=== PATIENT | female | born 1945 | race Caucasian/White ===

== ENCOUNTER 2017-03-19 13:22 | Inpatient (IN) ==
[2017-03-19 14:07] LABS: MANUAL DIFF NEEDED? NO
[2017-03-19 14:15] LABS: BASO% 0.4 % (0.0-0.8); EOS# 0.07 X1000 (0.0-0.7); EOS% 0.7 % (0.0-10.0); HEMATOCRIT 42.8 % (37.0-47.0); HEMOGLOBIN 14.1 g/dL (12.0-16.0); IMM GRAN# 0.02 X1000 (0.0-0.04); IMM GRAN% 0.2 % (0.0-0.5); LYMPH# 0.99 X1000 (1.2-3.4); LYMPH% 10.1 % (20.5-51.1); MCH 30.7 PG (27-31); MCHC 32.9 g/dL (33-37); MONO# 0.72 X1000 (0.11-0.59); MONO% 7.4 % (1.7-9.3); MPV 9.7 FL (7.4-10.4); NEUT% 81.2 % (42.2-75.2); PLT 259 X1000 (130-400)
[2017-03-19 14:23] LABS: INR 1.03; PROTIME 10.8 Seconds (9.2-11.7); PTT 27.6 Seconds (22.0-36.0)
[2017-03-19] MEDS ORDERED: DUONEB (A & A) INH ONE (14:36)
[2017-03-19 14:38] LABS: AGAP 12; ALBUMIN 3.6 g/dL (3.5-5.0); ALKALINE PHOSPHATASE 93 U/L (32-104); BUN 10 mg/dL (8-22); CALCIUM 9.9 mg/dL (8.8-10.2); CHLORIDE 91 mmol/L (98-107); CK PROFILE 35 U/L (24-173); COSMO 267; GOT 19 U/L (10-30); GPT 15 U/L (10-36); MAGNESIUM 1.4 mg/dL (1.5-2.7); POTASSIUM 3.5 mmol/L (3.5-5.1); SODIUM 132 mmol/L (136-145); TCO2 29 mmol/L (25-35); TOTAL BILIRUBIN 0.62 mg/dL (0.20-1.00); TOTAL PROTEIN 7.8 g/dL (6.3-8.3)
[2017-03-19 14:59] LABS: ALLEN TEST YES; BE 7.8 mmoll (-3.0-3.0); BLOOD TYPE ARTERIAL; DRAW SITE R RADIAL; METHB 0.7 % (0.0-1.5); O2(CT) 17.5 mL/dL (15.0-23.0); PCO2(98.6) 49 mmHg (35-45); PO2(98.6) 71 mmHg (60-100); SAMPLE BLOOD; SAO2 95.8 % (95.0-100.0); THB 13.3 g/dL (11.5-17.4); pH(98.6) 7.44 (7.35-7.45)
[2017-03-19 15:00] LABS: MODALITY CANNULA
[2017-03-19 15:03] LABS: URINE CULTURE NEEDED? NO; URINE MICRO REVIEW NEEDED? NO; URINE SOURCE CLEAN CATCH
[2017-03-19 15:09] LABS: BILIRUBIN URINE NEGATIVE (NEGATIVE); BLOOD URINE NEGATIVE (NEGATIVE); COLOR STRAW; GLUCOSE URINE NEGATIVE (NEGATIVE); LEUKOCYTES URINE NEGATIVE (NEGATIVE); NITRITE URINE NEGATIVE (NEGATIVE); PH URINE 6.5; PROTEIN URINE NEGATIVE (NEGATIVE); SP GRAVITY URINE 1.001; TURBIDITY URINE CLEAR (CLEAR); UR EPITHELIAL CELLS <10 /HPF (<10); URINE BACTERIA NEGATIVE /HPF; URINE RBC <10 /HPF (<10); URINE WBC <10 /HPF (<10); UROBILINOGEN URINE NORMAL (NORMAL)
[2017-03-19] MEDS ORDERED: LASIX IV ONE (20:14)
[2017-03-19] MEDS ORDERED: MAGNESIUM SULFATE 2 GM/S.W.I. 2 GM/50 ML IVPB IV ONE (20:38)
[2017-03-19] MEDS ORDERED: KLOR-CON PO ONE (20:38)
[2017-03-19] MEDS ORDERED: MYLICON PO ONE (20:38)
[2017-03-19] MEDS ORDERED: TYLENOL PO PRN (21:45)
[2017-03-19] MEDS ORDERED: ZOFRAN IV PRN (21:45)
[2017-03-19] MEDS: NORCO-10 PO PRN (22:24)
[2017-03-19] MEDS: DESYREL PO SCH (22:25)
[2017-03-19] MEDS: DUONEB (A & A) INH SCH (22:55)
[2017-03-19] MEDS ORDERED: ELAVIL PO SCH (23:00)
[2017-03-19] MEDS ORDERED: TRILAFON PO SCH ×2 (23:00→23:54)
[2017-03-20] MEDS: TRILAFON PO SCH ×3 (01:47→22:23)
[2017-03-20] MEDS: ELAVIL PO SCH ×3 (01:47→22:23)
[2017-03-20] MEDS: DUONEB (A & A) INH SCH ×5 (03:33→19:40)
[2017-03-20 04:57] LABS: ALLEN TEST YES; BE 12.9 mmoll (-3.0-3.0); BLOOD TYPE ARTERIAL; DRAW SITE R RADIAL; METHB 0.4 % (0.0-1.5); O2(CT) 6.2 mL/dL (15.0-23.0); PO2(98.6) 64 mmHg (60-100); SAMPLE BLOOD; SAO2 97.4 % (95.0-100.0); THB 4.5 g/dL (11.5-17.4); pH(98.6) 7.46 (7.35-7.45)
[2017-03-20 04:59] LABS: MODALITY CANNULA; PCO2(98.6) 53 mmHg (35-45)
[2017-03-20] MEDS: PRILOSEC PO SCH ×2 (05:40→08:46)
[2017-03-20 06:11] LABS: MANUAL DIFF NEEDED? NO
[2017-03-20 06:28] LABS: BASO% 0.4 % (0.0-0.8); EOS# 0.13 X1000 (0.0-0.7); EOS% 1.6 % (0.0-10.0); HEMATOCRIT 42.4 % (37.0-47.0); HEMOGLOBIN 13.9 g/dL (12.0-16.0); LYMPH# 1.76 X1000 (1.2-3.4); LYMPH% 22.2 % (20.5-51.1); MCH 30.8 PG (27-31); MCHC 32.8 g/dL (33-37); MCV 93.8 FL (81-99); MONO# 0.92 X1000 (0.11-0.59); MONO% 11.6 % (1.7-9.3); MPV 9.5 FL (7.4-10.4); NEUT% 64.2 % (42.2-75.2); PLT 260 X1000 (130-400); RBC 4.52 XMIL (4.2-5.4)
[2017-03-20 06:47] LABS: AGAP 14; BUN 12 mg/dL (8-22); CALCIUM 9.3 mg/dL (8.8-10.2); CHLORIDE 95 mmol/L (98-107); COSMO 283; POTASSIUM 3.3 mmol/L (3.5-5.1); SODIUM 142 mmol/L (136-145); TCO2 33 mmol/L (25-35)
[2017-03-20] MEDS ORDERED: KLOR-CON PO ONE (08:05)
[2017-03-20] MEDS: PRINZIDE 10/12.5MG PO SCH (08:44)
[2017-03-20] MEDS: LASIX PO SCH (08:45)
[2017-03-20] MEDS: NORCO-10 PO PRN ×2 (08:45→18:31)
[2017-03-20] MEDS: ZYLOPRIM PO SCH (08:45)
[2017-03-20] MEDS: TOPROL XL PO SCH (08:45)
[2017-03-20] MEDS ORDERED: PREDNISONE PO SCH (09:00)
[2017-03-20] MEDS: ADVAIR 250/50 DISKUS INH SCH ×2 (09:51→19:39)
[2017-03-20] MEDS: SPIRIVA INH SCH (09:52)
[2017-03-20] MEDS: BROVANA NEB INH SCH ×2 (09:52→19:40)
[2017-03-20] MEDS: DESYREL PO SCH (22:23)
[2017-03-21] MEDS: DUONEB (A & A) INH SCH ×4 (02:54→19:45)
[2017-03-21] MEDS: PRILOSEC PO SCH (06:24)
[2017-03-21 07:01] LABS: MANUAL DIFF NEEDED? NO
[2017-03-21 07:09] LABS: BASO% 0.4 % (0.0-0.8); EOS# 0.16 X1000 (0.0-0.7); EOS% 2.3 % (0.0-10.0); HEMATOCRIT 39.9 % (37.0-47.0); HEMOGLOBIN 12.7 g/dL (12.0-16.0); IMM GRAN# 0.02 X1000 (0.0-0.04); IMM GRAN% 0.3 % (0.0-0.5); LYMPH# 1.54 X1000 (1.2-3.4); MCH 30.2 PG (27-31); MCHC 31.8 g/dL (33-37); MCV 94.8 FL (81-99); MONO# 0.85 X1000 (0.11-0.59); MONO% 12.1 % (1.7-9.3); MPV 9.6 FL (7.4-10.4); NEUT% 62.9 % (42.2-75.2); PLT 253 X1000 (130-400); RBC 4.21 XMIL (4.2-5.4)
[2017-03-21 07:38] LABS: AGAP 12; ALBUMIN 3.4 g/dL (3.5-5.0); ALKALINE PHOSPHATASE 65 U/L (32-104); BUN 16 mg/dL (8-22); CALCIUM 8.8 mg/dL (8.8-10.2); CHLORIDE 98 mmol/L (98-107); COSMO 285; GOT 17 U/L (10-30); GPT 14 U/L (10-36); POTASSIUM 3.8 mmol/L (3.5-5.1); SODIUM 142 mmol/L (136-145); TCO2 32 mmol/L (25-35); TOTAL BILIRUBIN 0.29 mg/dL (0.20-1.00); TOTAL PROTEIN 6.3 g/dL (6.3-8.3)
[2017-03-21] MEDS ORDERED: PREDNISONE PO SCH (07:48)
[2017-03-21] MEDS: SPIRIVA INH SCH (08:04)
[2017-03-21] MEDS: ADVAIR 250/50 DISKUS INH SCH ×2 (08:04→19:44)
[2017-03-21] MEDS: BROVANA NEB INH SCH ×2 (08:05→19:44)
[2017-03-21] MEDS: NORVASC PO SCH ×2 (08:35→20:25)
[2017-03-21] MEDS: LASIX PO SCH (08:35)
[2017-03-21] MEDS: ELAVIL PO SCH ×2 (08:36→20:25)
[2017-03-21] MEDS: NORCO-10 PO PRN ×3 (08:36→23:58)
[2017-03-21] MEDS: TOPROL XL PO SCH (08:37)
[2017-03-21] MEDS: TRILAFON PO SCH ×2 (08:37→20:25)
[2017-03-21] MEDS: ZYLOPRIM PO SCH (08:38)
[2017-03-21] MEDS ORDERED: NORVASC PO SCH (09:00)
[2017-03-21] MEDS: PRINZIDE 10/12.5MG PO SCH (09:55)
[2017-03-21] MEDS: DESYREL PO SCH (20:25)
[2017-03-22] MEDS: DUONEB (A & A) INH SCH ×2 (02:34→11:00)
[2017-03-22] MEDS: PRILOSEC PO SCH (06:17)
[2017-03-22 07:55] VITALS: BP 154/70
[2017-03-22] MEDS ORDERED: MEDROL DOSEPAK PO SCH (10:30)
[2017-03-22] MEDS: ADVAIR 250/50 DISKUS INH SCH (11:12)
[2017-03-22] MEDS: SPIRIVA INH SCH (11:14)
[2017-03-22] MEDS: BROVANA NEB INH SCH (11:14)
[2017-03-22] MEDS: TRILAFON PO SCH (11:16)
[2017-03-22] MEDS: ELAVIL PO SCH (11:17)
[2017-03-22] MEDS: NORVASC PO SCH (11:17)
[2017-03-22] MEDS: TOPROL XL PO SCH (11:17)
[2017-03-22] MEDS: PRINZIDE 10/12.5MG PO SCH (11:18)
[2017-03-22] MEDS: LASIX PO SCH (11:18)
[2017-03-22] MEDS: ZYLOPRIM PO SCH (11:19)
[2017-03-22] MEDS: NORCO-10 PO PRN (11:23)
[2017-03-22] MEDS ORDERED: MEDROL PO SCH (12:00)
== END 2017-03-22 13:56 | disposition home health service (06) ==
LOC: ED 13:22 → SUATTDRO 21:16 → 4N 21:16
PROVIDERS: ATTEND Internal Medicine

== ENCOUNTER 2018-07-29 15:01 | Inpatient (IN) ==
[2018-07-29] MEDS ORDERED: DUONEB (A & A) INH ONE ×3 (15:19→15:20)
--- NOTE | 2018-07-29 15:26 | PROVIDER DOCUMENTATION ---
HPI-Respiratory General - General Stated Complaint: RESPIRATORY DISTRESS Time Seen by Provider: 07/29/18 15:12 Source: patient Allergies/Adverse Reactions: Patient Allergies Allergy/AdvReac Type Severity Reaction Status Date / Time No Known Allergies Allergy Verified 06/13/18 00:03 Home Medications: Home Medication List Medication Instructions Recorded Confirmed Last Taken Type Allopurinol 300 mg PO DAILY 03/19/17 06/13/18 12/11/17 History Citalopram [Celexa] 40 mg PO DAILY 03/19/17 06/13/18 12/11/17 History Omeprazole 40 mg PO DAILY 03/19/17 06/13/18 12/11/17 History Amlodipine [Norvasc] 5 mg PO BID #120 tablet 03/22/17 06/13/18 12/11/17 Rx 0900 Benzonatate 100 mg PO Q8H PRN PRN 06/16/17 06/13/18 12/11/17 History Buspirone [Buspar] 10 mg PO Q8H 06/16/17 06/13/18 12/11/17 History Albuterol [Albuterol Neb] 2.5 mg INH RTQ6H 08/06/17 06/13/18 12/11/17 History Tiotropium [place] Inhaler 18 mcg IH RTDAILY #1 inhaler 08/08/17 06/13/18 Rx [Spiriva] Albuterol Sulfate [Proair Hfa] 8.5 gm INH Q4H PRN PRN 11/11/17 06/13/18 History Cholecalciferol (Vitamin D3) 5,000 unit PO DAILY 11/11/17 06/13/18 12/11/17 History [Vitamin D3] Prednisone 10 mg PO DAILY 11/11/17 06/13/18 11/30/17 07:00 History Promethazine [Phenergan] 25 mg PO Q8H PRN PRN 11/11/17 06/13/18 12/11/17 History 0900 Vitamin A 8,000 unit PO DAILY 11/11/17 06/13/18 11/30/17 07:00 History Blood Sugar Diagnostic [Contour 1 ea [facility] 4XDAY #30 strip 11/20/17 06/13/18 Rx Test Strip] Blood-Glucose Control, Low 1 ea MC ONCE #1 ea 11/20/17 06/13/18 12/11/17 Rx [Contour Next Control Solution] Blood-Glucose Meter [Contour Next] 1 [facility] 4XDAY #1 ea 11/20/17 06/13/18 18:00 Rx Fluticasone/Vilant 200/25 INH 1 puff INH RTDAILY #1 inhaler 11/20/17 06/13/18 07:00 Rx [Breo Ellipta 200/25 Mcg INH] Lactobacillus Rhamnosus GG 1 ea PO BID #60 cap 11/20/17 06/13/18 11/30/17 07:00 Rx [Culturelle] Lancets [Blood Lancets] 1 [facility] 4XDAY #30 ea 11/20/17 06/13/18 11/30/17 18:00 Rx Metformin [Glucophage] 500 mg PO BID CC #60 tab 11/20/17 06/13/18 12/11/17 Rx Roflumilast [Daliresp] 500 microgm PO DAILY #120 tab 12/04/17 06/13/18 12/11/17 Rx Clonidine [Catapres] 0.1 mg PO DAILY #90 tab 12/23/17 06/13/18 Unknown Rx Amoxicillin/Pot Clavulanate 875 mg PO Q12HR #14 tab 06/19/18 Unknown Rx [Augmentin] Doxycycline 100 mg PO BID #14 tab 06/19/18 Unknown Rx Fluticasone/Salmet 500/50 INH 1 puff INH RTBID inhaler 06/19/18 Unknown Rx [Advair 500/50 Diskus] Furosemide [Lasix] 40 mg PO DAILY PRN #0 06/19/18 06/13/18 12/11/17 Rx Guaifenesin E.r. [Mucinex] 1,200 mg PO Q12H tablet 06/19/18 Unknown Rx Hydrocodone/Acetaminophen 1 ea PO Q8H PRN PRN #20 tab 06/19/18 Unknown Rx [Hydrocodone-Acetamin 10-325 mg] LISINOpril [Prinivil] 10 mg PO DAILY #30 tab 06/19/18 Unknown Rx - History of Present Illness-Resp Nature of Presenting Problem: 73 YEAR OLD WITH HISTORY OF COPD, CHF, DM, HYPERTNESION BROUGHT IN BY EMS WITH CONCERN OF PROGRESSIVE SHORTNESS OF BREATH FOR THE WEEK. STATES ITS WORSE WHEN SHE LAY FLAT AND BETTER IF SHE SITS UP. DENIES FEVER, CHILL, EAR PAIN, RHINORRHEA, SORE THROAT, CHEST DISCOMFORT, PALPITATION, COUGH, ABDOMINAL DISCOMFORT, NAUSEA, VOMITING, DIARRHEA, CONSTIPATION, MYALGIA, ARTHRALGIA, NEW RASH/LESION, AND HEAT OR COLD INTOLERANCE. Review of Systems - Adult - REVIEW OF SYSTEMS - ADULT Constitutional: reports: no symptoms reported, see HPI Eyes: reports: no symptoms reported, see HPI Ears, Nose, Mouth & Throat: reports: no symptoms reported, see HPI Cardiovascular: reports: edema (RIGHT LOWER EXTREMITY SWELLING.), orthopnea. denies: irregular heart rate Respiratory: reports: dyspnea on exertion, shortness of breath, wheezing, other (ORTHOPNEA). denies: chronic cough, cough, excessive sputum production, hemoptysis, pleurisy Gastrointestinal: reports: no symptoms reported, see HPI Genitourinary: reports: no symptoms reported, see HPI Musculoskeletal: reports: no symptoms reported, see HPI Integumentary: reports: no symptoms reported, see HPI Neurological: reports: no symptoms reported, see HPI Psychiatric: reports: no symptoms reported, see HPI Endocrine: reports: no symptoms reported, see HPI Hematologic/Lymphatic: reports: no symptoms reported, see HPI Past History - Adult - PAST MEDICAL HISTORY-ADULT Review of Records: reports: Old Records Reviewed Major Childhood Illnesses: reports: denies history Cardiovascular: reports: CHF, HTN Respiratory: reports: asthma, COPD Gastrointestinal: reports: GERD Obstetrical/Gynecological: reports: denies history Genitourinary: reports: kidney disease Musculoskeletal: reports: denies history Neurological: reports: denies history Psychiatric: reports: depression Endocrine/Immune: reports: denies history Other Conditions: reports: denies history - PRIOR SURGERIES/PROCEDURES Surgical/Procedure History: reports: cholecystectomy, hysterectomy - IMMUNIZATION STATUS Childhood Immunizations: See Nurse Assessment Flu Vaccine: See Nurse Assessment - FAMILY HISTORY Family History: reviewed, not pertinent Physical Exam-General - PHYSICAL EXAM-ADULT Initial Vital Signs Reviewed: Yes - CONSTITUTIONAL General Appearance: alert, mild distress - EYES Eyes: PERRL/EOMI - HEAD, EARS, NOSE, MOUTH & THROAT HENMT: normocephalic/atraumatic, moist mucous membranes - NECK Neck: non-tender, full range of motion, supple - RESPIRATORY Respiratory: chest non-tender, no pleuratic chest pain, no accessory muscle use , respiratory distress, wheezing. negative: accessory muscle use - CARDIOVASCULAR Cardiovascular: normal peripheral pulses, tachycardia, other (RIGHT LOWER EXTREMITY EDEMA.) - GASTROINTESTINAL (ABDOMEN) Abdominal Exam: normal bowel sounds, non tender, soft - MUSCULOSKELETAL Back Exam: normal inspection, no CVA tenderness, no vertebral tenderness Extremity: normal range of motion, non-tender, normal gait, other (RIGHT LOWER EXTREMISTY MILD EDEMA.) - SKIN Integumentary: normal color, normal turgor - NEUROLOGIC Neurologic: grossly normal - PSYCHIATRIC Psych/Mental Status: normal mood/affect, normal thought content, normal thought process, oriented x 3 Progress - PLAN OF CARE/RESULTS Progress/Plan/Lab Results: Vital Signs - 8 hr 07/29/18 15:03 07/29/18 15:13 07/29/18 15:18 Temperature 98.7 F Pulse Rate 114 H 120 H 119 H Respiratory Rate 22 27 H 34 H Blood Pressure 159/88 129/92 O2 Sat by Pulse Oximetry 91 L 87 L 88 L 07/29/18 15:20 07/29/18 15:30 07/29/18 15:40 Temperature Pulse Rate 117 H 119 H 118 H Respiratory Rate 24 25 H 27 H Blood Pressure O2 Sat by Pulse Oximetry 92 L 89 L 95 07/29/18 15:50 07/29/18 16:00 07/29/18 16:10 Temperature Pulse Rate 118 H 115 H 112 H Respiratory Rate 24 33 H 23 Blood Pressure O2 Sat by Pulse Oximetry 95 95 07/29/18 16:20 07/29/18 16:30 07/29/18 16:40 Temperature Pulse Rate 119 H 118 H 134 H Respiratory Rate 30 H 41 H 26 H Blood Pressure O2 Sat by Pulse Oximetry 07/29/18 16:50 07/29/18 17:00 07/29/18 17:10 Temperature Pulse Rate 119 H 115 H 113 H Respiratory Rate 17 20 19 Blood Pressure O2 Sat by Pulse Oximetry 92 L 98 07/29/18 17:20 07/29/18 17:30 07/29/18 17:40 Temperature Pulse Rate 112 H 110 H 113 H Respiratory Rate 30 H 23 23 Blood Pressure O2 Sat by Pulse Oximetry 100 99 93 L 07/29/18 17:50 07/29/18 18:00 07/29/18 18:10 Temperature Pulse Rate 110 H 103 H 118 H Respiratory Rate 28 H 24 25 H Blood Pressure O2 Sat by Pulse Oximetry 99 100 94 L 07/29/18 18:20 07/29/18 18:30 07/29/18 18:40 Temperature Pulse Rate 113 H 104 H Respiratory Rate 27 H 30 H 22 Blood Pressure O2 Sat by Pulse Oximetry 98 98 99 Laboratory Results - last 24 hr 07/29/18 07/29/18 07/29/18 15:40 16:15 16:15 WBC 8.35 RBC 4.42 Hgb 10.7 L Hct 36.3 L MCV 82.1 MCH 24.2 L MCHC 29.5 L RDW Std Deviation 18.3 H Plt Count 302 MPV 9.1 Immature Gran % (Auto) 0.4 Neut % (Auto) 73.3 Lymph % (Auto) 15.3 L [place] % (Auto) 9.1 Eos % (Auto) 1.4 Baso % (Auto) 0.5 Immature Gran # (Auto) 0.03 Neut # (Auto) 6.12 Lymph # (Auto) 1.28 [place] # (Auto) 0.76 H Eos # (Auto) 0.12 Baso # (Auto) 0.04 PT INR PTT (Actin FS) D-Dimer, Quantitative Specimen Type ARTERIAL Sample Site R RADIAL pH 7.40 pCO2 50 H pO2 87 HCO3 29.0 H Base Excess 5.3 H Oxyhemoglobin 95.7 ABG O2 Sat (Calculated) 14.0 L ABG O2 Saturation 98.0 ABG Carboxyhemoglobin 2.20 ABG Methemoglobin 0.0 Jose Test YES A-a O2 Difference 136.0 Total Hemoglobin 10.3 L Lactate 1.60 Liter Flow 5.0 Blood Gas Modality CANNULA FiO2 % 40.0 Sodium 141 Potassium 4.5 Chloride 97 L Carbon Dioxide 33 Anion Gap 11 BUN 17 Creatinine 0.7 Estimated GFR/1.73 m2 > 60 BUN/Creatinine Ratio 24 Glucose 101 Calculated Osmolality 283 Calcium 9.4 Magnesium 1.6 Total Bilirubin 0.50 AST 29 ALT 38 H Alkaline Phosphatase 98 Creatine Kinase 52 Troponin T [id number]-[id number] Pept Total Protein 6.8 Albumin 4.2 Globulin 2.6 Albumin/Globulin Ratio 1.6 Plasma Lactate Urine Source Urine Color Urine Turbidity Urine pH Ur Specific [place] Urine Protein Ur Glucose (Stick) Ur Ketones (Stick) Urine Blood Urine Nitrite Urine Bilirubin Urobilinogen Dipstick Urine Leukocytes Urine WBC (Auto) Urine RBC (Auto) U Epithel Cells (Auto) Urine Bacteria (Auto) 07/29/18 07/29/18 07/29/18 16:15 16:15 16:15 WBC RBC Hgb Hct MCV MCH MCHC RDW Std Deviation Plt Count MPV Immature Gran % (Auto) Neut % (Auto) Lymph % (Auto) [place] % (Auto) Eos % (Auto) Baso % (Auto) Immature Gran # (Auto) Neut # (Auto) Lymph # (Auto) [place] # (Auto) Eos # (Auto) Baso # (Auto) PT 13.3 INR 0.94 PTT (Actin FS) 29.9 D-Dimer, Quantitative 6.76 H Specimen Type Sample Site pH pCO2 pO2 HCO3 Base Excess Oxyhemoglobin ABG O2 Sat (Calculated) ABG O2 Saturation ABG Carboxyhemoglobin ABG Methemoglobin Jose Test A-a O2 Difference Total Hemoglobin Lactate Liter Flow Blood Gas Modality FiO2 % Sodium Potassium Chloride Carbon Dioxide Anion Gap BUN Creatinine Estimated GFR/1.73 m2 BUN/Creatinine Ratio Glucose Calculated Osmolality Calcium Magnesium Total Bilirubin AST ALT Alkaline Phosphatase Creatine Kinase Troponin T < 0.010 [id number]-[id number] Pept 5118 H Total Protein Albumin Globulin Albumin/Globulin Ratio Plasma Lactate Urine Source Urine Color Urine Turbidity Urine pH Ur Specific [place] Urine Protein Ur Glucose (Stick) Ur Ketones (Stick) Urine Blood Urine Nitrite Urine Bilirubin Urobilinogen Dipstick Urine Leukocytes Urine WBC (Auto) Urine RBC (Auto) U Epithel Cells (Auto) Urine Bacteria (Auto) 07/29/18 07/29/18 16:15 16:36 WBC RBC Hgb Hct MCV MCH MCHC RDW Std Deviation Plt Count MPV Immature Gran % (Auto) Neut % (Auto) Lymph % (Auto) [place] % (Auto) Eos % (Auto) Baso % (Auto) Immature Gran # (Auto) Neut # (Auto) Lymph # (Auto) [place] # (Auto) Eos # (Auto) Baso # (Auto) PT INR PTT (Actin FS) D-Dimer, Quantitative Specimen Type Sample Site pH pCO2 pO2 HCO3 Base Excess Oxyhemoglobin ABG O2 Sat (Calculated) ABG O2 Saturation ABG Carboxyhemoglobin ABG Methemoglobin Jose Test A-a O2 Difference Total Hemoglobin Lactate Liter Flow Blood Gas Modality FiO2 % Sodium Potassium Chloride Carbon Dioxide Anion Gap BUN Creatinine Estimated GFR/1.73 m2 BUN/Creatinine Ratio Glucose Calculated Osmolality Calcium Magnesium Total Bilirubin AST ALT Alkaline Phosphatase Creatine Kinase Troponin T [id number]-Mjceptcejvj Pept Total Protein Albumin Globulin Albumin/Globulin Ratio Plasma Lactate 1.8 Urine Source CLEAN CATCH Urine Color YELLOW Urine Turbidity CLEAR Urine pH 5.5 Ur Specific [place] 1.005 Urine Protein NEGATIVE Ur Glucose (Stick) NEGATIVE Ur Ketones (Stick) NEGATIVE Urine Blood NEGATIVE Urine Nitrite NEGATIVE Urine Bilirubin NEGATIVE Urobilinogen Dipstick NORMAL Urine Leukocytes NEGATIVE Urine WBC (Auto) <10 Urine RBC (Auto) <10 U Epithel Cells (Auto) <10 Urine Bacteria (Auto) NEGATIVE Orders Category Date Time Status Cardiac Monitoring DIRECTED Care 07/29/18 16:00 Active Notify of + Sepsis Screen NOW Care 07/29/18 16:[address] ANGIOGRM PULMONARY ARTERIES [CT] Stat Exams 07/29/18 17:17 Completed cxr [CHEST-PORTABLE] [RAD] Stat Exams 07/29/18 15:18 Completed ABG [RESP] Routine Lab 07/29/18 15:40 Completed BLOOD CULTURE [BLDCUL] Stat Lab 07/29/18 16:15 Results CBC WITH ELECTRONIC DIFF [HEME] Stat Lab 07/29/18 16:15 Completed CK PROFILE [SP CHEM] Stat Lab 07/29/18 16:15 Completed COMPREHENSIVE METABOLIC PANEL [CHEM] Stat Lab 07/29/18 16:15 Completed D-DIMER [COAG] Stat Lab 07/29/18 16:15 Completed LACTATE, PLASMA [CHEM] Q3H Lab 07/29/18 16:15 Completed MAGNESIUM [CHEM] Stat Lab 07/29/18 16:15 Completed PRO B-NATRIURETIC PEPTIDE Stat Lab 07/29/18 16:15 Completed PROTIME WITH INR [COAG] Stat Lab 07/29/18 16:15 Completed PTT [COAG] Stat Lab 07/29/18 16:15 Completed TROPONIN T Stat Lab 07/29/18 16:15 Completed URINALYSIS W/POSS RFLX CULT [URINALYSIS] Stat Lab 07/29/18 16:36 Completed Albuterol 2.5MG/Ipratrop 0.5MG [Duoneb (A & A)] Med 07/29/18 15:19 Discontinued 3 ml INH NOW ONE Albuterol 2.5MG/Ipratrop 0.5MG [Duoneb (A & A)] Med 07/29/18 15:19 Discontinued 3 ml INH NOW ONE Albuterol 2.5MG/Ipratrop 0.5MG [Duoneb (A & A)] Med 07/29/18 15:20 Discontinued 3 ml INH NOW ONE Buspirone [Buspar] Med 07/29/18 16:58 Discontinued 7.5 mg PO NOW ONE Furosemide [Lasix] Med 07/29/18 17:25 Discontinued 40 mg IV NOW ONE Hydrocodone/APAP 5 mg/325 mg [[place]-5] Med 07/29/18 16:45 Discontinued 1 each PO NOW ONE Aerosol Treatments Routine Oth 07/29/18 15:19 Completed Aerosol Treatments Stat Oth 07/29/18 15:19 Completed Oxygen Device Stat Oth 07/29/18 16:00 Completed EKG [EKG] Stat Ther 07/29/18 15:20 Ordered Venous U/S Right Leg Stat Ther 07/29/18 17:13 Completed Result Diagrams: 07/29/18 16:15 07/29/18 16:15 - REASSESSMENT Reassessment #1 Time Reassessed: 17:40 Status: other (PER ULTRASOUND; NO DVT BUT RIGGINS CYST. PENDING CTPA TO R/O PE PATIENT HAVE ELEVATED DDIMER. PATIENT DOES HAVE ELEVATED BNP AND IS IN CLINICALLY CHF EXACERBATION; WHICH I ORDERED LASIX.) Reassessment #2 Time Reassessed: 20:10 Status: improving (PATIENT STATES SOB IS IMPROVING AFTER LAXIS. CTPA WITHOUT PE BUT BIBISALIR INFILTRIAOTN CONCERING FOR PNA; HOWEVERE, PATIENT DOENS'T HAVE ANY NEUTROPHILIC LEUKOCYTOSIS. PATIENT DOES HAVE ELEVATED BNP AND CLINICALLYY IN CHF EXACERABATION. I HAVE SPOKE TO THE HOSPITLIAST WHO WILL COME AND EVALUTAE THE PATIENT; [facility].E) - EKG 1 Time of EKG reading by physician:: 16:25 EKG Read and Signed by:: Ramesh Davidson EKG Interpretation (*Must complete 3 of following elements*): Abnormal Rate: 115 Rhythm: SINUS TACHYCARDIA Patterson: normal QRS: normal CO Interval: normal ST Wave: normal Departure - Departure Date of Disposition Decision: 07/29/18 Time of Disposition Decision: 20:11 DIAGNOSIS: CHF exacerbation Disposition: ADMITTED INPATIENT 09 Certified Medical Emergency: Emergent Condition: Fair Referrals and Follow-Ups: Humza Glaser MD [Primary Care Provider] - - Critical Care Note This patient required my direct & personal management of CC.: No Attestation - Physician/ RADHA Attestation Patient care was provided by Advanced Practice Provider:: No The physician spent face to face time with patient:: Yes Advanced Practice Provider documentation review:: Supervising physician onsite and consulted in the evaluation and care of this patient. The physician did have a face to face encounter with the patient.
[2018-07-29 15:45] LABS: ALLEN TEST YES; BE 5.3 mmoll (-3.0-3.0); BLOOD TYPE ARTERIAL; O2HB 95.7 % (95.0-99.0); PCO2(98.6) 50 mmHg (35-45); PO2(98.6) 87 mmHg (60-100); SAMPLE BLOOD; THB 10.3 g/dL (11.5-17.4)
[2018-07-29 15:46] LABS: MODALITY CANNULA
[2018-07-29 16:44] LABS: URINE SOURCE CLEAN CATCH
[2018-07-29] MEDS ORDERED: NORCO-5 PO ONE (16:45)
[2018-07-29 16:51] LABS: BASO# 0.04 X1000 (0.0-0.2); BASO% 0.5 % (0.0-0.8); EOS# 0.12 X1000 (0.0-0.7); EOS% 1.4 % (0.0-10.0); HEMATOCRIT 36.3 % (37.0-47.0); HEMOGLOBIN 10.7 g/dL (12.0-16.0); IMM GRAN# 0.03 X1000 (0.0-0.04); IMM GRAN% 0.4 % (0.0-0.5); LYMPH# 1.28 X1000 (1.2-3.4); LYMPH% 15.3 % (20.5-51.1); MCH 24.2 PG (27-31); MCHC 29.5 g/dL (33-37); MCV 82.1 FL (81-99); MONO# 0.76 X1000 (0.11-0.59); MONO% 9.1 % (1.7-9.3); MPV 9.1 FL (7.4-10.4); NEUT# 6.12 X1000 (1.4-6.5); NEUT% 73.3 % (42.2-75.2); PLT 302 X1000 (130-400); RBC 4.42 XMIL (4.2-5.4); RDW 18.3 % (11.5-14.5); WBC 8.35 X1000 (4.8-10.8)
[2018-07-29 16:54] LABS: INR 0.94; PROTIME 13.3 Seconds (11.0-16.0)
[2018-07-29 16:55] LABS: PTT 29.9 Seconds (22.3-41.8)
[2018-07-29 16:57] LABS: BILIRUBIN URINE NEGATIVE (NEGATIVE); BLOOD URINE NEGATIVE (NEGATIVE); COLOR YELLOW; GLUCOSE URINE NEGATIVE (NEGATIVE); KETONE URINE NEGATIVE (NEGATIVE); LEUKOCYTES URINE NEGATIVE (NEGATIVE); NITRITE URINE NEGATIVE (NEGATIVE); PH URINE 5.5; PROTEIN URINE NEGATIVE (NEGATIVE); SP GRAVITY URINE 1.005; TURBIDITY URINE CLEAR (CLEAR); UROBILINOGEN URINE NORMAL (NORMAL)
[2018-07-29 16:58] LABS: UR EPITHELIAL CELLS <10 /HPF (<10); URINE BACTERIA NEGATIVE /HPF; URINE RBC <10 /HPF (<10); URINE WBC <10 /HPF (<10)
[2018-07-29] MEDS ORDERED: BUSPAR PO ONE (16:58)
[2018-07-29 17:05] LABS: AGAP 11; ALB/GLOB RATIO 1.6; ALBUMIN 4.2 g/dL (3.5-5.0); ALKALINE PHOSPHATASE 98 U/L (32-104); BUN 17 mg/dL (8-22); CALCIUM 9.4 mg/dL (8.8-10.2); CHLORIDE 97 mmol/L (98-107); CK PROFILE 52 U/L (24-173); COSMO 283; CREATININE 0.7 mg/dL (0.5-0.9); D-DIMER 6.76 ug/mLFEU (0.0-0.52); ESTIMATED GFR > 60; GLUCOSE 101 mg/dL (70-104); GOT 29 U/L (10-30); GPT 38 U/L (10-36); MAGNESIUM 1.6 mg/dL (1.5-2.7); POTASSIUM 4.5 mmol/L (3.5-5.1); SODIUM 141 mmol/L (136-145); TCO2 33 mmol/L (25-35); TOTAL PROTEIN 6.8 g/dL (6.3-8.3)
--- NOTE | 2018-07-29 17:06 | Diag Imaging Result Doc PS360 ---
EXAM: CHEST-PORTABLE INDICATION: HX COPD/CHF PRESENTS WITH PROGRESSIVE SOB TECHNIQUE: One view COMPARISON: 06/15/2018 FINDINGS: Inspiration is suboptimal. There is mild subsegmental atelectasis at the lung bases. The lungs are grossly clear, otherwise. There is no discrete pleural fluid collection or pneumothorax. The cardiac silhouette is prominent but stable. IMPRESSION: Low lung volumes and mild bibasilar subsegmental atelectasis. No definite acute pathology by plain radiograph. Electronically signed by Travon Carter 07/29/2018 5:04 PM
[2018-07-29] MEDS ORDERED: LASIX IV ONE (17:25)
--- NOTE | 2018-07-29 19:55 | Diag Imaging Result Doc PS360 ---
EXAM: CT ANGIOGRM PULMONARY ARTERIES INDICATION: SOB + DDIMER HIGH TECHNIQUE: This exam was performed using automated exposure control, adjustment of mA or kV according to patient size, and/or use of iterative reconstruction technique. Thin section axial images and 3-D MIPS were obtained. COMPARISON: 06/18/2018 FINDINGS: There is no evidence of pulmonary embolism. There is atherosclerotic calcification at the aortic arch. There is no evidence of aortic aneurysm or dissection. There is stable cardiomegaly. There are calcified mediastinal lymph nodes indicating prior granulomatous disease. There is advanced pulmonary emphysema, stable. There are airspace consolidations in the lower lobes bilaterally near the bases indicating pneumonia, worse on the right. There are scattered calcified granulomata bilaterally. There is a stable 9 mm lung nodule in the right lower lobe on image 94 of series 6. There is a stable 7 mm lung nodule near the right lung apex. These are nonspecific. Consider follow-up based on Fleischner Society criteria. There is stable scarring at the right lung apex. There is no pleural fluid collection and no pneumothorax. Limited views of the upper abdomen are essentially unremarkable. IMPRESSION: 1.Severe emphysema. 2.Bibasilar infiltrates suggesting pneumonia, worse on the right. 3.No evidence of pulmonary embolism. 4.Other external/nonacute findings detailed above that are stable as compared to the previous study. Electronically signed by Travon Carter 07/29/2018 7:52 PM
[2018-07-29] MEDS ORDERED: ROCEPHIN 1 GM in NS 50 ML IV SCH (22:00)
[2018-07-29] MEDS ORDERED: MAXIPIME 2 GM in NS 100 ML IV ONE (23:00)
[2018-07-29] MEDS: ZITHROMAX 500 MG/NS 500 MG/250 ML IVPB IV SCH (23:30)
[2018-07-29] MEDS: NORCO-10 PO PRN (23:35)
[2018-07-30] MEDS: CULTURELLE PO SCH ×3 (01:10→21:30)
--- NOTE | 2018-07-30 01:47 | HISTORY AND PHYSICAL ---
ADDENDUM: The patient is a 73-year-old female with a history of hypertension, COPD, reportedly CHF, presenting with shortness of breath for the last week. She has a somewhat productive cough, but unclear if what it is caused by. In any case she has a fairly higher O2 requirement baseline around 5 L and right now she is on 100% non-rebreather, saturating okay but with saturations of 94%-97%, although I think we have backed her down to a Ventimask just because of her COPD history. Her physical exam shows end-expiratory wheezes, I feel like she is fairly tight. Her D-dimer was quite elevated. Her PaO2 was okay with a 40% FiO2. Basic was okay. She does have lower extremity edema, elevated proBNP, reportedly CHF, but I do not see, she had an echocardiogram 2 years ago that showed an EF of 65, but she had some diastolic dysfunction at that time. PROBLEM LIST: 1. Acute hypoxic respiratory failure likely multifactorial, COPD exacerbation, CHF exacerbation and possibly early pneumonia. We will continue O2 and breathing treatments and treat issues separately. 2. Multilobar pneumonia, bilateral lower lobe. She was in the hospital about a month ago so we will treat this is a gram-negative type pneumonia and give her cefepime. I will give azithromycin for atypical coverage, but that will be per primary team. We will adjust accordingly and continue and possibly try to obtain a sputum sample. Blood cultures have been obtained. 3. Chronic obstructive pulmonary disease exacerbation. We will continue breathing treatments and steroids. She has stopped smoking. She is on chronic home O2. She is on BiPAP at night as well. 4. Putative CHF exacerbation. She has orthopnea, lower extremity edema, and diastolic dysfunction. Her chest x-ray was not read as failure and looks again more like pneumonia, but we will go ahead and give her a course of diuretics and repeat her echocardiogram and get a couple more enzymes. 5. Diabetes. We will resolve her medications once they have been reconciled or per primary team, and continue sliding scale and wean steroids as soon as soon as she is improved because of potential hyperglycemia. We will continue gastrointestinal and deep vein thrombosis prophylaxis as well. We will consult her primary snaker who is Dr. Crane. cc: Ez Austin MD
[2018-07-30] MEDS ORDERED: TYLENOL PO PRN (02:31)
[2018-07-30] MEDS ORDERED: ZOFRAN IV PRN (02:31)
[2018-07-30] MEDS ORDERED: DUONEB (A & A) INH PRN (02:31)
[2018-07-30] MEDS: PROTONIX IV SCH (03:55)
[2018-07-30] MEDS: LASIX IV SCH ×2 (06:11→18:20)
[2018-07-30] MEDS: LOVENOX SUBQ SCH (06:12)
[2018-07-30] MEDS: SOLU-MEDROL IV SCH ×3 (06:12→21:30)
[2018-07-30] MEDS: HUMALOG SUBQ SCH ×4 (06:13→21:30)
--- NOTE | 2018-07-30 06:33 | HISTORY AND PHYSICAL ---
PRIMARY CARE PROVIDER: Humza Glaser MD. COAL SHOVELER: Meron Crane MD. CHIEF COMPLAINT: Shortness of breath. HISTORY OF PRESENT ILLNESS: Ms. Marshall is a 73-year-old female with a past medical history most notable for COPD on home oxygen at 5 L per nasal cannula, obstructive sleep apnea, reported congestive heart failure and hypertension. She was just recently admitted to our facility on 06/13/2018 and was discharged on 06/19/2018. During that admission she was treated for a COPD exacerbation and [id number] hypoxemia and hypercapnic respiratory failure. The patient stated approximately a week ago she did begin to have worsening shortness of breath. This was at rest and upon exertion. The patient states that due to her lung disease that she does not exert herself much but she normally is able to make it to the bathroom and back without difficulty. She states that over the past week she has noticed just even walking to the bathroom she becomes very short of breath. She also states that with exertion her oxygen saturation had been dropping into the 70s. She states that normally she is in the high 80s to low 90s on her oxygen saturation. She does report some orthopnea, productive cough with clear sputum, as well as some lower extremity edema though this is worse on the right. The patient states it is not uncommon for her to have swelling to be worse on her right lower extremity. She denies any dizziness or headache. She did report a brief episode of some left-sided chest pain a few days ago though she stated this did come on quickly and quickly subsided and has not happened since. She denies any abdominal pain, nausea, vomiting or diarrhea. She denies any hematochezia or melena. She states that her last bowel movement was yesterday. She denies any dysuria or urinary frequency. She also denies any fevers, body aches or chills. Upon evaluation in the ER the patient was noted to be slightly hypoxic with oxygen saturations that were 88-87% on 5 L per nasal cannula, though the patient did report this is not far off from her baseline. They did increase her oxygen supplementation from a nasal cannula 6 L to a nonrebreather. Though upon our examination the patient was maintaining adequate oxygen saturation. Given her COPD history we did back her down to a Venti-mask. Though the patient does not appear to be in any acute distress she still is a little tachypneic as well as she is reporting that she does feel short of breath at rest. She did have expiratory wheezing noted in all patterson upon auscultation. She does appear to be somewhat diminished slightly in bilateral bases as well and did have some crackles noted in the left lung base. The patient is awake, alert, and oriented to person, place, time and situation. She is able to speak clearly without difficulty. She has been afebrile. The white blood cell count is within normal limits. ABG did show a CO2 level of 50, though this is at her baseline. The pO2 was 87 and O2 saturation was 98. Chemistries were pretty unremarkable except for the patient's proBNP was elevated at 5118. Her D- dimer was also elevated at 6.76. The patient denies any known history of DVT or pulmonary embolism. Given her reported symptoms and this finding they did perform a CT angiogram pulmonary arteries which was negative for a pulmonary embolism though did show findings of bibasilar infiltrate suggesting pneumonia, which was worse on the right as well as severe emphysema. Also, a venous Doppler of the right lower extremity was performed which was reportedly negative for a DVT. The patient's right lower extremity does have 1 to 2+ pitting edema noted from approximately knee down. This extremity was more swollen than the left. The EKG showed sinus tachycardia at a rate of 115 with a QTc of 464. At this time the patient will be admitted for further treatment and evaluation. REVIEW OF SYSTEMS: A 14-point review of systems was conducted with the patient and all were negative except for pertinent positives mentioned in the above HPI. PAST MEDICAL HISTORY: 1. COPD, on home oxygen at 5 L per nasal cannula. 2. Reportedly history of diastolic dysfunction with a last known ejection fraction of 65% in March 2017. 3. Hypertension. 4. Depression. 5. Anxiety. 6. Gastroesophageal reflux disease. 7. Gout. 8. Obstructive sleep apnea with nightly use of BiPAP. 9. Diabetes mellitus. PAST SURGICAL HISTORY: 1. Cholecystectomy. 2. Hysterectomy. 3. Appendectomy. 4. Right carpal tunnel surgery. SOCIAL HISTORY: The patient is a former smoker. She did quit smoking in 1996 though prior to this she did smoke two packs per day since she was a teenager. There is no known other history of alcohol or illicit drug use. The patient does live with her son. He does help care for her. She lives in [place]. She does require the assistance of a walker for ambulation. FAMILY HISTORY: Positive for her mother having a history of breast cancer. Her father had a history of COPD. She did have a son which from a reported type of nasal cancer, which did metastasize to his lymph nodes. ALLERGIES: The patient reports no known allergies. HOME MEDICATIONS: At this time we are awaiting the patient's home medication list to be updated and verified. Once this is done we will address her home medication list. DIAGNOSTIC DATA: White blood cell count is 8350. Hemoglobin 10.7. Hematocrit is 36.3. Platelet count is 302,000. PT 13.3. INR 0.94. PTT is 29.9. D-dimer is 6.76. Sodium 141. Potassium 4.5. Chloride 97. Serum bicarb is 33. BUN 17. Creatinine 0.7. Calcium 9.4. Magnesium 1.6. Liver function tests within normal limits except for ALT is slightly elevated at 38. CK 52. Troponin less than 0.01. ProBNP is 5118. Plasma lactate is 1.8. Arterial blood gases were obtained on nasal cannula at 5 L: pH 7.4, pCO2 50, pO2 87, HCO3 is 29, base excess is 5.3, O2 saturation is 98%. A urinalysis was obtained via clean catch and was negative for protein, glucose, ketones, blood, nitrites, leukocytes, white blood cells or bacteria. The EKG showed sinus tachycardia at a rate of 115 with a QTc of 464. RADIOLOGY STUDIES: 1. Chest x-ray showed low lung volumes and mild bibasilar subsegmental atelectasis though no definite acute pathology. This is per Radiology. 2. CT angiogram pulmonary arteries showed severe emphysema. There were bibasilar infiltrates suggesting pneumonia that were worse on the right. There was no evidence of pulmonary embolism. Please see full CT report for other nonacute findings. There was mention of a stable 9-mm lung nodule in the right lower lobe as well as there was a stable 7-mm lung nodule near the right lung apex. These were noted to be nonspecific though the radiologist did note consider followup based on the Fleischner Society criteria. PHYSICAL EXAMINATION: VITAL SIGNS: Temperature 98.7, heart rate 118, respirations 24, and blood pressure is 135/88. The oxygen saturation is 94% on Venti-mask. GENERAL: Ms. Marshall is a pleasant 73-year-old female. She was resting in the ER stretcher. She was in no acute distress though was still slightly tachypneic upon examination. She was awake, alert and able to answer all questions appropriately. HEENT: The head is normocephalic and atraumatic. The pupils are equal, round, and reactive to light, 3 mm bilaterally and brisk. The oral mucosa is moist. The oropharynx is clear. NECK: Supple. Trachea midline. No carotid bruits are noted upon auscultation bilaterally. There is no JVD noted or hepatojugular reflux present. CARDIOVASCULAR: The patient has an S1 and S2. No murmurs, rubs, or gallops are appreciated, with a slightly tachycardic rate that is regular. PULMONARY: The patient has symmetrical chest expansion bilaterally, lung sounds in bilateral full patterson. Did have expiratory wheezing noted. She was slightly diminished in the bases and also did have some crackles noted in the left lung base as well. ABDOMEN: Soft. It does not appear to be distended. The patient does have a slightly protuberant abdomen noted. She was nontender upon palpation. Bowel sounds were present in all four quadrants and were normoactive. EXTREMITIES: No cyanosis or clubbing noted. The patient does have 1 to 2+ pitting edema noted in the right lower extremity from approximately knee down. Though her right lower extremity was more swollen than her left, this extremity did not appear to have any erythema or warmth noted when compared to her left lower extremity. Pulse, motor and sensory was intact in all extremities. Radial pulses and pedal pulses were 2+ bilaterally. Capillary refill was less than 3. INTEGUMENTARY: The patient's skin is pink, warm, and dry. NEUROLOGICAL: The patient is alert and oriented times four. She is able to move all extremities and there do not appear to be any focal neurological deficits noted at this time. ASSESSMENT AND PLAN: 1. Acute hypoxic respiratory failure. This could be multifactorial. The patient does have chronic obstructive pulmonary disease (COPD) and is oxygen dependent at home with nasal cannula at 5 liters. She also may have possible congestive heart failure (CHF) exacerbation and pneumonia as well. At this time the oxygen saturations have improved. The patient is on a Venti-mask at this time and her respiratory status has improved. Please see numbers 2, 3 and 4 below for further treatments. 2. Multilobar pneumonia. The patient's computed tomography (CT) did note that she had bibasilar infiltrates suggesting pneumonia. The patient does not have any leukocytosis present and has been afebrile. Given her worsening respiratory symptoms we have placed her on antibiotics of cefepime. Given that she was recently admitted to the hospital we have also placed her on coverage of azithromycin as well. Blood cultures have been obtained. We will try to obtain a sputum culture as well. We will continue with incentive spirometry and pulmonary toilet. We will continue to follow. 3. Chronic obstructive pulmonary disease exacerbation. We will continue with breathing treatments of Mucomyst and DuoNeb. We will also continue her Advair. We will continue with oxygen supplementation as mentioned above and have placed her on Solu-Medrol as well. We have also placed a consult with Dr. Crane with Pulmonology and will await his evaluation and further recommendations for management. 4. Possible congestive heart failure exacerbation. The patient is reporting having worsening dyspnea, orthopnea, and does have some lower extremity edema. She did not have any jugular venous distention (JVD) upon examination and computed tomography findings suggest a possible pneumonia as well. Though given this we will try her with a course of intravenous diuretics with Lasix. We will also repeat an echocardiogram and a series of cardiac enzymes. We will monitor her response to this treatment regimen and continue to follow closely. 5. Obstructive sleep apnea. We will continue her bilevel positive airway pressure (BiPAP) nightly. The patient is going to try to bring her bilevel positive airway pressure machine from home. 6. Diabetes mellitus. We have placed her on sliding scale lispro insulin. We will do pattern fingerstick blood sugars and continue to follow. 7. Elevated D-dimer. Given the patient's reported respiratory symptoms as well as her right lower extremity swelling, a computed tomography angiogram pulmonary arteries as well as a venous Doppler of the right lower extremity was performed and were both negative for pulmonary embolus (PE) or deep venous thrombosis (DVT). 8. Deep venous thrombosis prophylaxis will be provided with Lovenox 40 mg subcutaneous daily. 9. Gastrointestinal (GI) prophylaxis is provided with Protonix 40 mg intravenously q.24 h. 10.The patient has been placed on the medical floor with telemetry. She will have vital signs q.4 h. 11.We will do strict intake and output. 12.She will be on a diabetic and Heart Healthy diet. 13.We will also repeat a complete blood count, basic metabolic panel, magnesium in the morning. We are awaiting hemoglobin A1c and a series of cardiac enzymes. 14.Further orders and recommendations pending hospital course, diagnostic studies and physician evaluation. Dictated by JESSE Simms for Ez Austin MD cc: Ez Austin MD
[2018-07-30 06:36] LABS: BASO# 0.06 X1000 (0.0-0.2); BASO% 0.9 % (0.0-0.8); EOS# 0.21 X1000 (0.0-0.7); EOS% 3.2 % (0.0-10.0); HEMATOCRIT 34.5 % (37.0-47.0); LYMPH# 1.22 X1000 (1.2-3.4); LYMPH% 18.7 % (20.5-51.1); MCV 82.7 FL (81-99); MONO# 0.89 X1000 (0.11-0.59); MONO% 13.7 % (1.7-9.3); MPV 9.1 FL (7.4-10.4); NEUT# 4.14 X1000 (1.4-6.5); NEUT% 63.5 % (42.2-75.2); PLT 285 X1000 (130-400); RBC 4.17 XMIL (4.2-5.4); RDW 18.2 % (11.5-14.5); WBC 6.52 X1000 (4.8-10.8)
[2018-07-30 06:53] LABS: HEMOGLOBIN A1C 5.7 % (4.8-6.0)
[2018-07-30 07:15] LABS: AGAP 11; BUN 15 mg/dL (8-22); CALCIUM 8.8 mg/dL (8.8-10.2); CHLORIDE 98 mmol/L (98-107); COSMO 282; CREATININE 0.6 mg/dL (0.5-0.9); ESTIMATED GFR > 60; GLUCOSE 101 mg/dL (70-104); MAGNESIUM 1.7 mg/dL (1.5-2.7); POTASSIUM 4.2 mmol/L (3.5-5.1); SODIUM 141 mmol/L (136-145); TCO2 32 mmol/L (25-35)
--- NOTE | 2018-07-30 07:26 | EKG Report ---
Test Performed on : 07/29/2018 4:07:07 PM Test Reason : TACHYCARDIAC Blood Pressure : / mmHG Vent. Rate : 115 BPM Atrial Rate : 115 BPM P-R Int : 148 ms QRS Dur : 082 ms QT Int : 336 ms P-R-T Axes : 057 -19 039 degrees QTc Int : 464 ms Sinus tachycardia. Possible Left atrial enlargement Borderline ECG No previous ECGs available Unconfirmed Result
[2018-07-30] MEDS: ADVAIR 500/50 DISKUS INH SCH ×2 (07:30→19:51)
[2018-07-30] MEDS: MUCOMYST 20% INH SCH ×2 (07:30→19:51)
[2018-07-30] MEDS: DUONEB (A & A) INH SCH ×4 (07:30→19:51)
[2018-07-30] MEDS: NORCO-10 PO PRN ×2 (10:14→18:18)
--- NOTE | 2018-07-30 11:29 | PROGRESS NOTE ---
DATE: 07/30/2018 SUBJECTIVE: This patient is still complaining of severe shortness of breath and anxiety. She has been hospitalized multiple times for the same issue. Her COPD is quite advanced. Last year, she was the hospitalized 6 times at least. As per the patient, she is taking her medications as prescribed. She is full code. OBJECTIVE: Vital Signs: Temperature 98.7 degrees, pulse 110, respiratory rate 29, blood pressure 162/89, oxygen saturation 97% on room air. HEENT: Head normocephalic. No trauma. PERRLA. Neck: Supple. She does have a JVD. Central trachea. Chest: Decreased breath sounds globally with prolonged expiratory phase and bilateral expiratory wheezing. Abdomen: Soft, nontender, and nondistended. No hepatosplenomegaly. Extremity: 2 to 3+ lower extremity edema. No clubbing. No cyanosis. Neurological: The patient is alert and oriented x3. No focal deficits, but anxiety. LABORATORY: WBC 6.5, hemoglobin 10, hematocrit 34.5, platelets 285,000. Sodium 141, potassium 4.2, chloride 98, bicarbonate 32, BUN 15, creatinine 0.6, glucose 110. Calcium 8.8. Troponins negative x2. ASSESSMENT AND PLAN: 1. Acute hypoxemic and hypercapnic respiratory failure. Continue with the same management. Likely this is secondary to her advanced chronic obstructive pulmonary disease. Will continue with steroids, breathing treatment, pulmonary toilet, and oxygen supplementation. 2. Multilobar pneumonia, mostly bibasilar. Given her worsening respiratory symptoms, we have placed this patient on antibiotics. We will continue with the same treatment. Blood culture requested. 3. Chronic obstructive pulmonary disease exacerbation. Continue breathing treatment, antibiotics, oxygen supplementation, and pulmonary toilet. Pulmonary Department has been consulted. 4. Congestive heart failure exacerbation. This patient does have mild JVD. We will continue with intravenous Lasix, and also we will repeat the echocardiogram and serial cardiac enzymes, which has been negative. 5. Obstructive sleep apnea. For now, we will continue with the BiPAP machine. 6. Type 2 diabetes. Continue sliding scale insulin and pattern of blood sugar. 7. Elevated D-dimer. CT angiogram did not show any acute abnormality, pending lower extremity deep venous ultrasound. 8. Deep vein thrombosis prophylaxis with Lovenox daily. 9. Gastrointestinal prophylaxis with Protonix. 10. Resuscitation status. This patient is full code. cc: Juan M Valdes MD
[2018-07-30] MEDS: MAXIPIME 2 GM in NS 100 ML IV SCH (13:02)
--- NOTE | 2018-07-30 17:23 | PULMONOLOGY CONSULTATION ---
DATE: 07/30/2018 REQUESTING PHYSICIAN: Dr. Kiran Austin. REASON FOR CONSULTATION: Respiratory failure. HISTORY OF PRESENT ILLNESS: Ms. Marshall is a [id number] female with a long history of COPD (nonsmoker since 1996) with recurrent admissions to the hospital. She developed increasing shortness of breath, increasing productive cough, with worsening oxygen saturation at home. The patient reports that she routinely wears 5 L per nasal cannula, and her oxygen saturations have been dropping into the 70s. The patient presented to the emergency room yesterday afternoon with audible wheezing. CT scan of the thorax was performed which revealed severe emphysema with bibasilar pulmonary infiltrates and two nonspecific pulmonary nodules. She has been initiated on bronchodilators, steroids, and antibiotics. Clinically, she has had marginal improvement. The patient does report occasional difficulty with dysphagia. She has no significant reflux by her report. PAST MEDICAL HISTORY: 1. COPD as per above. 2. Diastolic heart failure. 3. Hypertension. 4. Anxiety/depressive disorder. 5. Gastroesophageal reflux disease noted on prior H Ps, but denied by the patient. 6. Gout. 7. Status post cholecystectomy. 8. Status post hysterectomy. 9. Status post appendectomy. 10.Status post right knee arthroscopy. SOCIAL HISTORY: No alcohol use. Prior tobacco use as per above. FAMILY HISTORY: Notable for cancers in several family members, but the patient is unaware of the type. REVIEW OF SYSTEMS: As noted in the HPI. MEDICATIONS ON ADMISSION: Reviewed. PHYSICAL EXAM: An obese-white female who can complete full sentences but does have audible wheezing noted. Blood pressure 150/96, heart rate 101, respiratory rate 18 and oxygen saturation 89%. HEENT: Pupils are equal and reactive. Oropharynx is clear. Neck: Supple. Chest: Reveals diffuse bilateral wheezing and rhonchi. Cardiac: S1, S2. Abdomen: Obese and soft. Extremities: 1+ peripheral edema. LABORATORY: Arterial blood gas on 5 L per nasal cannula showed a pH of 7.40, pCO2 50, and pO2 of 87. Chemistry--sodium 141, potassium 4.2, chloride 98, bicarbonate 32, BUN 15, creatinine 0.6. CT scan as per HPI. IMPRESSION: 73-year-old with COPD, chronic hypoxemic respiratory failure and obesity who presents with a COPD exacerbation and acute community acquired pneumonia. The patient's infiltrates are bibasilar which would be consistent with reflux, but she denies any overt reflux event. The patient did have some increased difficulty with lower extremity edema which likely represented a component of acute cor pulmonale. PLAN: 1. Continue oxygen as needed to maintain saturation greater than 90%. 2. Agree with broad spectrum antibiotics. 3. Agree with diuretic trial as you are doing. 4. Anticipate transfer to the floor when a bed is available. cc: Narciso Avila MD
[2018-07-30] MEDS: XANAX PO PRN (21:30)
[2018-07-30] MEDS: ZITHROMAX 500 MG/NS 500 MG/250 ML IVPB IV SCH (21:48)
[2018-07-31] MEDS: DUONEB (A & A) INH SCH ×7 (00:03→23:45)
[2018-07-31] MEDS: MAXIPIME 2 GM in NS 100 ML IV SCH ×2 (00:34→12:47)
[2018-07-31] MEDS: NORCO-10 PO PRN ×3 (02:50→17:52)
[2018-07-31] MEDS: XANAX PO PRN ×3 (02:50→17:54)
[2018-07-31] MEDS: SODIUM CHLORIDE 0.9% INJ SCH (05:28)
[2018-07-31] MEDS: LASIX IV SCH ×2 (05:28→17:55)
[2018-07-31] MEDS: PROTONIX IV SCH (05:28)
[2018-07-31] MEDS: SOLU-MEDROL IV SCH ×4 (05:29→20:01)
[2018-07-31] MEDS: LOVENOX SUBQ SCH (05:37)
[2018-07-31] MEDS: HUMALOG SUBQ SCH ×4 (06:16→20:00)
[2018-07-31 07:42] LABS: BASO# 0.01 X1000 (0.0-0.2); BASO% 0.2 % (0.0-0.8); EOS# 0.01 X1000 (0.0-0.7); EOS% 0.2 % (0.0-10.0); HEMATOCRIT 31.9 % (37.0-47.0); HEMOGLOBIN 9.3 g/dL (12.0-16.0); LYMPH# 0.67 X1000 (1.2-3.4); LYMPH% 13.2 % (20.5-51.1); MCH 24.1 PG (27-31); MCHC 29.2 g/dL (33-37); MCV 82.6 FL (81-99); MONO# 0.29 X1000 (0.11-0.59); MONO% 5.7 % (1.7-9.3); MPV 9.8 FL (7.4-10.4); NEUT% 80.7 % (42.2-75.2); PLT 284 X1000 (130-400); RBC 3.86 XMIL (4.2-5.4); RDW 17.6 % (11.5-14.5); WBC 5.08 X1000 (4.8-10.8)
[2018-07-31] MEDS: ADVAIR 500/50 DISKUS INH SCH ×2 (07:44→19:33)
[2018-07-31] MEDS: MUCOMYST 20% INH SCH ×2 (07:44→19:33)
[2018-07-31 08:06] LABS: AGAP 10; ALB/GLOB RATIO 1.4; ALBUMIN 3.7 g/dL (3.5-5.0); ALKALINE PHOSPHATASE 78 U/L (32-104); BUN 21 mg/dL (8-22); CALCIUM 8.9 mg/dL (8.8-10.2); CHLORIDE 95 mmol/L (98-107); COSMO 289; CREATININE 0.6 mg/dL (0.5-0.9); ESTIMATED GFR > 60; GLUCOSE 143 mg/dL (70-104); GOT 22 U/L (10-30); GPT 36 U/L (10-36); MAGNESIUM 1.8 mg/dL (1.5-2.7); PHOSPHORUS 4.8 mg/dL (2.7-4.5); POTASSIUM 4.1 mmol/L (3.5-5.1); SODIUM 142 mmol/L (136-145); TCO2 37 mmol/L (25-35); TOTAL BILIRUBIN 0.48 mg/dL (0.20-1.00); TOTAL PROTEIN 6.4 g/dL (6.3-8.3)
[2018-07-31] MEDS: CELEXA PO SCH (10:17)
[2018-07-31] MEDS: CULTURELLE PO SCH ×3 (10:18→20:01)
--- NOTE | 2018-07-31 10:18 | ECHO REPORT ---
ORDER DATE: 07/30/2018 INTERPRETING PHYSICIAN: Greg Boogie MD INDICATION: A 73-year-old female with CHF, COPD, hypertension, and obesity. M-MODE MEASUREMENTS: Left ventricle end diastole: 4.2 cm. Left ventricle end systole: 2.4 cm. Posterior wall: 1.0 cm. Interventricular septum: 1.0 cm. Left atrium: 4.8 cm. Aortic root: 2.0 cm. SUMMARY OF 2-DIMENSIONAL IMAGIN. Left ventricular function is normal. The ejection fraction is probably on the order of 55%. 2. There is enlargement of the right ventricle with flattening of the anterior interventricular septum. There is the suggestion of right ventricular pressure/volume overload. 3. The tricuspid valve shows a moderate degree of regurgitation. 4. Pulmonary pressure is estimated at 57 mmHg. 5. The pulmonic valve looks normal. 6. The aortic valve looks normal. Color flow mapping is unremarkable. 7. The mitral valve shows no significant regurgitation. 8. Pulse wave Doppler of mitral inflow shows fusion of the E and the A wave. 9. The patient is tachycardic. 10.Tissue Doppler of septal and lateral mitral annulus is hard to identify due to tachycardia and fusion of the E prime and the A prime waves. 11.There is enlargement of the right atrium more so than the left atrium. 12.There is a trivial pericardial effusion. SUMMARY: In summary, this study shows: 1. Preserved left ventricular systolic function. 2. Enlargement of the right ventricle with suggestion of pressure/volume overload. 3. Pulmonary pressure is estimated at 57 mmHg. Clinical correlation is recommended. cc: MD Ez Stark MD
--- NOTE | 2018-07-31 11:52 | PROGRESS NOTE ---
DATE: 07/31/2018 SUBJECTIVE: This patient is still complaining of shortness of breath, but compared with yesterday, she feels a little bit better. She is also anxious. Her COPD is quite advanced. Last year, she was hospitalized at least 6 times in this hospital. As per the patient, she is taking her medications as prescribed. We will continue with the same management for now. OBJECTIVE: Vital Signs: Temperature 97.9, pulse 91, respiratory rate 16, blood pressure 120/60, O2 saturation 93% on a Venturi mask. HEENT: Head normocephalic. No trauma. PERRLA. Neck: Supple. She does have some JVD. Central trachea. Chest: Decreased breath sounds globally with prolonged expiratory phase and faint expiratory wheezing. Abdomen soft, nontender, nondistended. No hepatosplenomegaly. Extremities: 2 to 3+ lower extremity edema. No clubbing. No cyanosis. Neurological: The patient is alert and oriented x3. No focal deficits, but anxiety. LABORATORY: WBC 5, hemoglobin 9.3, hematocrit 31.9, platelets 284,000. Sodium 142, potassium 4.1, chloride 95, bicarbonate 37. BUN 21, creatinine 0.6, glucose 143. Calcium 8.9, phosphorus 4.8, magnesium 1.8. Pro BNP 4713. ASSESSMENT AND PLAN: 1. Acute hypoxemic and hypercapnic respiratory failure secondary to advanced chronic obstructive pulmonary disease. Continue with the same management. Continue with steroids, breathing treatment, pulmonary toilet, and oxygen supplementation. Pulmonary Department on board. 2. Multilobar pneumonia mostly bibasilar. Given her worsening respiratory symptoms, we have placed this patient on antibiotics. We will continue with the same treatment. Blood culture negative so far. 3. Chronic obstructive pulmonary disease exacerbation. Continue with same management. 4. Congestive heart failure exacerbation. This patient does have mild JVD. We will continue with IV Lasix for at least 1 more day, and I will re-evaluate this patient in the morning. 5. Obstructive sleep apnea. For now, we will continue with the BiPAP machine. 6. Type 2 diabetes. Continue with sliding scale insulin and pattern of blood sugar. Likely blood sugar will increase because of the steroids. 7. Elevated D-dimer, CT angiogram did not show any acute abnormality. Pending lower extremity ultrasound. 8. Deep vein thrombosis prophylaxis with Lovenox. 9. Gastrointestinal prophylaxis with Protonix. 10. Resuscitation status. This patient is FULL CODE. cc: Juan M Valdes MD
--- NOTE | 2018-07-31 20:59 | PULMONOLOGY PROGRESS NOTE ---
DATE: 07/31/2018 SUBJECTIVE: The patient is awake, alert, and conversant. She has moved out of the ER up to a room on the floor. She has shortness of breath with movement, but her shortness of breath has significantly diminished. OBJECTIVE: Vital Signs: BP 120/62, heart rate 95, respiratory rate 15, oxygen saturation 96% on Venturi mask. HEENT: Pupils are equal reactive. Oropharynx is clear. Neck: Is supple. Chest: Reveals scattered wheezing bilaterally. Cardiac: S1-S2 . Abdomen: Obese and soft. Extremities: Reveal trace edema. LABORATORIES: Blood cultures are negative to date. White blood count 5.08, hemoglobin 9.3, platelet count 284,000. Sodium 142, potassium 4.1, chloride 95, bicarbonate 37, BUN 21, creatinine 0.6. No new arterial blood gas. Echocardiogram yesterday revealed normal LV function with moderate pulmonary hypertension and moderate tricuspid regurgitation. IMPRESSION: 73-year-old with chronic obstructive pulmonary disease exacerbation, community- acquired pneumonia, chronic obstructive pulmonary disease with chronic hypoxemic respiratory failure, obesity, and dyspnea at rest. The patient's symptoms are improving. RECOMMENDATIONS: 1. Continue current antibiotic regimen. 2. Continue oxygen for hypoxemic respiratory failure. 3. Continue to balance intake and output or make the patient slightly negative. 4. Followup chest x-ray tomorrow morning. cc: Narciso Avila MD
[2018-07-31] MEDS: ZITHROMAX 500 MG/NS 500 MG/250 ML IVPB IV SCH (21:45)
[2018-08-01] MEDS: MAXIPIME 2 GM in NS 100 ML IV SCH ×2 (01:21→14:56)
[2018-08-01] MEDS: NORCO-10 PO PRN ×3 (01:49→23:56)
[2018-08-01] MEDS: LOVENOX SUBQ SCH (05:25)
[2018-08-01] MEDS: SODIUM CHLORIDE 0.9% INJ SCH (05:25)
[2018-08-01] MEDS: SOLU-MEDROL IV SCH (05:25)
[2018-08-01] MEDS: PROTONIX IV SCH (05:25)
[2018-08-01] MEDS: LASIX IV SCH ×2 (05:25→19:57)
[2018-08-01] MEDS: HUMALOG SUBQ SCH ×4 (06:01→23:46)
[2018-08-01] MEDS: MUCOMYST 20% INH SCH ×2 (07:29→20:34)
[2018-08-01] MEDS: DUONEB (A & A) INH SCH ×5 (07:29→22:00)
[2018-08-01] MEDS: ADVAIR 500/50 DISKUS INH SCH ×2 (07:30→20:34)
[2018-08-01 07:51] LABS: EOS# 0.01 X1000 (0.0-0.7); EOS% 0.1 % (0.0-10.0); HEMATOCRIT 35.6 % (37.0-47.0); HEMOGLOBIN 10.2 g/dL (12.0-16.0); LYMPH# 1.03 X1000 (1.2-3.4); LYMPH% 13.8 % (20.5-51.1); MCH 23.7 PG (27-31); MCHC 28.7 g/dL (33-37); MCV 82.8 FL (81-99); MONO# 0.69 X1000 (0.11-0.59); MONO% 9.3 % (1.7-9.3); MPV 9.5 FL (7.4-10.4); NEUT# 5.72 X1000 (1.4-6.5); NEUT% 76.8 % (42.2-75.2); PLT 307 X1000 (130-400); RDW 17.9 % (11.5-14.5); WBC 7.45 X1000 (4.8-10.8)
--- NOTE | 2018-08-01 08:02 | Diag Imaging Result Doc PS360 ---
EXAM: CHEST-PORTABLE - 08/01/2018 HISTORY: abnormal exam TECHNIQUE: Portable chest COMPARISON: 07/29/2018 FINDINGS: Inspiration is mildly shallow. There are ill-defined infiltrates and/or atelectasis at the bilateral lung bases. There is no substantial pleural effusion or pneumothorax identified. Heart size appears borderline enlarged. IMPRESSION: Mildly shallow inspiration. Ill-defined infiltrates and/or atelectasis at bilateral lung bases. Electronically signed by Nathan Cunningham 08/01/2018 8:00 AM
[2018-08-01 08:16] LABS: AGAP 11; ALB/GLOB RATIO 1.5; ALBUMIN 3.7 g/dL (3.5-5.0); ALKALINE PHOSPHATASE 77 U/L (32-104); BUN 23 mg/dL (8-22); CALCIUM 8.5 mg/dL (8.8-10.2); CHLORIDE 95 mmol/L (98-107); COSMO 292; CREATININE 0.6 mg/dL (0.5-0.9); ESTIMATED GFR > 60; GLUCOSE 130 mg/dL (70-104); GOT 17 U/L (10-30); GPT 34 U/L (10-36); POTASSIUM 3.9 mmol/L (3.5-5.1); SODIUM 144 mmol/L (136-145); TCO2 38 mmol/L (25-35); TOTAL BILIRUBIN 0.42 mg/dL (0.20-1.00); TOTAL PROTEIN 6.1 g/dL (6.3-8.3)
--- NOTE | 2018-08-01 13:59 | PROGRESS NOTE ---
DATE: 08/01/2018 SUBJECTIVE: This patient seems to be doing a little bit better. She is still using a Ventimask. is still having some wheezing, but very minimal. I will go ahead and decrease the steroids from 40 mg IV q.8 hours to hundred 40 daily and I will monitor. OBJECTIVE: Vital Signs: reviewed ASSESSMENT AND PLAN: 1. Hypoxemic and hypercapnic respiratory failure secondary to advanced COPD. Continue with the same management. I have decreased the dose of the steroids. Continue with breathing treatment, pulmonary toilet, oxygen supplementation. Pulmonary Department on board. 2. Multilobar pneumonia, mostly bibasilar. Continue with antibiotics. 3. Chronic obstructive pulmonary disease exacerbation. I have decreased the dose of the steroids. Otherwise, continue with same management. 4. Congestive heart failure exacerbation. She seems to be much better. Her x- ray still looks a little bit congested with possible a little bit of fluids. I will continue with Lasix one more day. I will re-evaluate this patient tomorrow. 5. Obstructive sleep apnea. For now, we will continue with the BiPAP machine. 6. Type 2 diabetes. Continue with sliding scale insulin and pattern of blood sugar, likely the blood sugar will increase because of the steroids. 7. Elevated D-dimer. CT angiogram of the chest did not show any acute abnormality. Pending lower extremity venous ultrasound results. 1. Deep venous vein with Lovenox. 2. Gastrointestinal prophylaxis with Protonix. 3. Resuscitation status. This patient is Full Code. cc: Juan M Valdes MD MTDD
[2018-08-01] MEDS: CELEXA PO SCH (14:47)
[2018-08-01] MEDS: CULTURELLE PO SCH ×2 (14:47→23:48)
[2018-08-01] MEDS: XANAX PO PRN ×2 (14:49→23:56)
--- NOTE | 2018-08-01 20:39 | PULMONOLOGY PROGRESS NOTE ---
DATE: 08/01/2018 SUBJECTIVE: The patient is awake, alert, and conversant. She reports she continues to have some shortness of breath at rest. OBJECTIVE: Vital Signs: The patient has been afebrile for the last 24 hours. Blood pressure 138/74, heart rate 109, respiratory rate 18, oxygen saturation 94% on nasal cannula. HEENT: Pupils are equal and reactive. Oropharynx is clear. Neck: Supple. Chest: Reveals bibasilar crackles. Cardiac: S1-S2. Abdomen: Soft, and without hepatosplenomegaly. Extremities: Without edema. LABORATORIES: Chest x-ray reveals shallow inspiration, with stable bibasilar infiltrates. No new microbiology data. White blood count 7.45, hemoglobin 10.1, platelet count 307,000. Sodium 144, potassium 3.9, chloride 95, bicarbonate 38, BUN 23, creatinine 0.6. IMPRESSION: A 73-year-old with chronic obstructive pulmonary disease exacerbation, continued wheezing on examination, community-acquired pneumonia, chronic hypoxemic respiratory failure, obesity, and dyspnea at rest. She is not significantly changed over the last 24 hours. RECOMMENDATION: 1. Continue current antibiotic regimen. 2. Continue oxygen. 3. Continue bronchial hygiene. 4. Attempt to balance intake and output. cc: Narciso Avila MD
[2018-08-01] MEDS: ZITHROMAX 500 MG/NS 500 MG/250 ML IVPB IV SCH (23:48)
[2018-08-02] MEDS: MAXIPIME 2 GM in NS 100 ML IV SCH ×2 (01:33→13:50)
[2018-08-02] MEDS: HUMALOG SUBQ SCH ×4 (06:30→20:01)
[2018-08-02] MEDS: PROTONIX IV SCH (06:30)
[2018-08-02] MEDS: SODIUM CHLORIDE 0.9% INJ SCH (06:30)
[2018-08-02] MEDS: LOVENOX SUBQ SCH (06:30)
[2018-08-02 07:52] LABS: AGAP 10; BUN 24 mg/dL (8-22); CALCIUM 8.2 mg/dL (8.8-10.2); CHLORIDE 95 mmol/L (98-107); COSMO 282; CREATININE 0.7 mg/dL (0.5-0.9); ESTIMATED GFR > 60; GLUCOSE 80 mg/dL (70-104); POTASSIUM 3.6 mmol/L (3.5-5.1); SODIUM 140 mmol/L (136-145); TCO2 35 mmol/L (25-35)
[2018-08-02] MEDS: ADVAIR 500/50 DISKUS INH SCH ×2 (07:58→19:37)
[2018-08-02] MEDS: DUONEB (A & A) INH SCH ×5 (07:59→23:00)
[2018-08-02] MEDS: CULTURELLE PO SCH ×2 (08:18→19:59)
[2018-08-02] MEDS: LASIX IV SCH (08:19)
[2018-08-02] MEDS: CELEXA PO SCH (08:19)
[2018-08-02] MEDS: SOLU-MEDROL IV SCH (08:19)
[2018-08-02] MEDS: NORCO-10 PO PRN ×2 (08:20→20:00)
[2018-08-02] MEDS: XANAX PO PRN ×2 (08:20→19:59)
[2018-08-02] MEDS: MUCOMYST 20% INH SCH ×2 (11:14→19:37)
--- NOTE | 2018-08-02 15:51 | PROGRESS NOTE ---
DATE: 08/02/2018 SUBJECTIVE: This patient is better. She is still having some wheezing. I do believe she can be discharged home in 1 or 2 days. I will continue with IV steroids. I have decreased the dose of Lasix because the BUN is going up. I already asked for a new x-ray and proBNP. OBJECTIVE: Vital Signs: Temperature 98.1 degrees, pulse 96 respiratory rate 20, blood pressure 112/57, oxygen saturation 93% on nasal cannula. HEENT: Head normocephalic. No trauma. PERRLA. Neck: Supple. No JVD. No masses. Central trachea. Chest: Decreased breath sounds globally with prolonged expiratory phase and faint expiratory wheezing, scattered. Abdomen: Soft, nontender, nondistended. No hepatosplenomegaly. Extremities: No edema. No clubbing. No cyanosis. Neurological: The patient is alert and oriented x3. No focal deficits. LABORATORY DATA: Sodium 140, potassium 3.6, chloride 95, bicarbonate 35, BUN 24, creatinine 0.7, glucose 80, calcium 8.2. ASSESSMENT AND PLAN: 1. Hypoxemic and hypercarbic respiratory failure secondary to advanced chronic obstructive pulmonary disease. Will continue with the same management. Continue with the same dose of steroids. Continue breathing treatments, pulmonary toilet, and oxygen supplementation. Pulmonary Department on board. 2. Multilobar pneumonia, mostly bibasilar. Continue with antibiotics. 3. Chronic obstructive pulmonary disease exacerbation. Yesterday, I decreased the dose of the steroids. Today, I will continue with the same treatment. She is still having some end- expiratory wheezing. 4. Congestive heart failure exacerbation, seems to be much better. I will decrease the dose of Lasix since the BUN is going up. I will check again a proBNP in the morning. 5. Obstructive sleep apnea. For now, will continue with cycling the BiPAP machine and nasal cannula. 6. Type 2 diabetes. Continue with sliding scale insulin and patterning of blood sugar. 7. Elevated D-dimer. CT angiogram of the chest did not show any abnormality. Bilateral lower extremity venous ultrasound has been done and is still pending the results. 8. Deep vein thrombosis prophylaxis with Lovenox. 9. Gastrointestinal prophylaxis with Protonix. 10. Resuscitation status. This patient is a Full Code. cc: Juan M Valdes MD
[2018-08-02] MEDS: ZITHROMAX 500 MG/NS 500 MG/250 ML IVPB IV SCH (23:51)
[2018-08-03] MEDS: MAXIPIME 2 GM in NS 100 ML IV SCH ×2 (01:00→12:02)
--- NOTE | 2018-08-03 03:08 | PULMONOLOGY PROGRESS NOTE ---
DATE: 08/02/2018 SUBJECTIVE: The patient reports she feels better. She reports less shortness of breath today. She is having no difficulty with coughing or clearing her secretions. OBJECTIVE: Vital Signs: The patient has been afebrile for the last 24 hours. Blood pressure 130/50, heart rate 102, respiratory rate 20, oxygen saturation 91% on nasal cannula. HEENT: Pupils are equal and reactive. Oropharynx is clear. Neck: Supple. Chest: Reveals faint wheezing. She has better air flow than yesterday and yesterday was better than the day before. Cardiac Examination: S1 and S2. Abdomen: Obese and soft. Extremities: Without edema. Laboratories: Sodium 140, potassium 3.6, chloride 95, bicarbonate 35, BUN 24, creatinine 0.7. IMPRESSION: A 73-year-old with chronic obstructive pulmonary disease, community-acquired pneumonia, chronic hypoxemic respiratory failure. The patient has wheezing on examination but it continues to diminish. She no longer has dyspnea at rest. She continues to clinically improve. RECOMMENDATIONS: 1. Continue current antibiotic regimen. 2. Agree with steroid taper. 3. Consider discharge in the next 24 to 48 hours with additional outpatient antibiotics if she continues to improve. cc: Narciso Avila MD
[2018-08-03] MEDS: NORCO-10 PO PRN ×2 (06:44→17:53)
[2018-08-03] MEDS: SODIUM CHLORIDE 0.9% INJ SCH (06:45)
[2018-08-03] MEDS: HUMALOG SUBQ SCH ×4 (06:45→20:27)
[2018-08-03] MEDS: LOVENOX SUBQ SCH (06:45)
[2018-08-03] MEDS: PROTONIX IV SCH (06:45)
--- NOTE | 2018-08-03 06:47 | Diag Imaging Result Doc PS360 ---
CHEST-PORTABLE - 08/03/2018 INDICATION: dyspnea COMPARISON: 08/01/2018 FINDINGS: Stable cardiomegaly and pulmonary vascular congestion. Stable COPD changes. No overt infiltrates or edema. Lung volumes are improved from prior. IMPRESSION: Cardiomegaly and pulmonary vascular congestion. Electronically signed by Damian Ware 08/03/2018 6:44 AM
[2018-08-03 07:29] LABS: BASO# 0.02 X1000 (0.0-0.2); BASO% 0.2 % (0.0-0.8); EOS% 2.4 % (0.0-10.0); HEMATOCRIT 35.4 % (37.0-47.0); HEMOGLOBIN 10.3 g/dL (12.0-16.0); IMM GRAN# 0.02 X1000 (0.0-0.04); IMM GRAN% 0.2 % (0.0-0.5); LYMPH# 2.16 X1000 (1.2-3.4); LYMPH% 26.4 % (20.5-51.1); MCH 24.1 PG (27-31); MCHC 29.1 g/dL (33-37); MCV 82.9 FL (81-99); MONO# 1.23 X1000 (0.11-0.59); MPV 9.6 FL (7.4-10.4); NEUT# 4.55 X1000 (1.4-6.5); NEUT% 55.8 % (42.2-75.2); PLT 293 X1000 (130-400); RBC 4.27 XMIL (4.2-5.4); RDW 17.6 % (11.5-14.5); WBC 8.18 X1000 (4.8-10.8)
[2018-08-03 07:41] LABS: AGAP 6; BUN 26 mg/dL (8-22); CALCIUM 8.7 mg/dL (8.8-10.2); CHLORIDE 97 mmol/L (98-107); COSMO 288; CREATININE 0.6 mg/dL (0.5-0.9); ESTIMATED GFR > 60; GLUCOSE 107 mg/dL (70-104); SODIUM 142 mmol/L (136-145); TCO2 39 mmol/L (25-35)
[2018-08-03] MEDS: DUONEB (A & A) INH SCH ×5 (07:43→23:30)
[2018-08-03] MEDS: ADVAIR 500/50 DISKUS INH SCH ×2 (07:43→20:54)
[2018-08-03] MEDS: MUCOMYST 20% INH SCH ×2 (07:43→20:55)
[2018-08-03] MEDS: CELEXA PO SCH (08:02)
[2018-08-03] MEDS: CULTURELLE PO SCH ×2 (08:02→20:27)
[2018-08-03] MEDS: LASIX IV SCH (08:02)
[2018-08-03] MEDS: SOLU-MEDROL IV SCH (08:02)
[2018-08-03] MEDS: XANAX PO PRN ×2 (11:59→17:54)
--- NOTE | 2018-08-03 13:28 | PROGRESS NOTE ---
DATE: 08/03/2018 Ms. Glasgow was admitted on 07/29/2018, is 73-year-old history of hypertension, COPD, reported congestive heart failure presented with shortness of breath for a week, she is somewhat productive cough so admitted with hypoxemic respiratory failure likely multifactorial, COPD congestive heart failure, multilobar pneumonia bilateral lower lobe treating for possible gram-negative and put on Rocephin, azithromycin for atypical and COPD exacerbation, congestive heart failure acute exacerbation, she is doing much better says she feels much better, remains afebrile. Temperature 97.8 degrees, pulse 82, respirations 20, blood pressure 129/70. Pupils are equal and round.Lungs: Clear in all lung patterson. Cardiovascular: Regular rhythm, rate without murmur or S3. Abdomen: Soft. Skin: Warm and dry. Urine output 3900 mL. Blood sugars 213 and 126. DATA: Chest x-ray cardiomegaly, pulmonary vascular congestion, stable COPD. ASSESSMENT AND PLAN: 1. A 73-year-old with chronic obstructive pulmonary disease and community-acquired multilobar pneumonia, chronic hypoxemic respiratory failure. The patient had some bronchospasm and wheezing which continues to diminish, continue present regimen, steroid taper, bronchodilators, supplemental O2. Seems to be making progress. 2. Congestive heart failure. Been following her BUN and creatinine and the electrolytes look good. Creatinine is 0.6, BUN 26. 3. Chronic obstructive pulmonary disease. 4. Obstructive sleep apnea. 5. Diabetes mellitus. Overall seen improvement. Review of orders I do not see any change. She is on methylprednisone 40 mg IV daily. cc: Jose Woody MD
--- NOTE | 2018-08-03 20:41 | PULMONOLOGY PROGRESS NOTE ---
DATE: 08/03/2018 SUBJECTIVE: Patient is awake, alert, and conversant. She reports her shortness of breath continues to diminish. OBJECTIVE: The patient has been afebrile for the last 24 hours. Blood pressure 143/81, heart rate 84, respiratory rate 22, oxygen saturation 95% on 5 L per nasal cannula.HEENT: Pupils are equal, reactive. Oropharynx is clear. Neck: Is supple. Chest: Reveals faint wheezing on exhalation. Cardiac: S1-S2. Abdomen: Obese and soft. Extremities: Reveal trace edema. LABORATORIES: Chest x-ray reveals generous cardiac silhouette with mild vascular congestion. She has better inspiration. White blood count 8.2, hemoglobin 10.3, platelet count 293,000. IMPRESSION: 73-year-old with chronic obstructive pulmonary disease, community-acquired pneumonia, chronic hypoxemic respiratory failure. She continues to have mild wheezing but her dyspnea is decreasing and clinically she continues to improve. RECOMMENDATION: 1. Continue current antibiotic regimen. 2. Recommend steroid taper over the next 7 to 10 days. 3. From a pulmonary standpoint, I believe she can be discharged on 08/04/2018 if she continues to progress today. cc: Narciso Avila MD
[2018-08-03] MEDS: ZITHROMAX 500 MG/NS 500 MG/250 ML IVPB IV SCH (23:35)
[2018-08-04] MEDS: MAXIPIME 2 GM in NS 100 ML IV SCH ×2 (01:00→12:17)
[2018-08-04] MEDS: PROTONIX IV SCH (06:42)
[2018-08-04] MEDS: HUMALOG SUBQ SCH ×4 (06:42→21:50)
[2018-08-04] MEDS: LOVENOX SUBQ SCH (06:42)
[2018-08-04] MEDS: DUONEB (A & A) INH SCH ×5 (07:33→23:25)
[2018-08-04] MEDS: ADVAIR 500/50 DISKUS INH SCH ×2 (07:33→19:30)
[2018-08-04] MEDS: MUCOMYST 20% INH SCH ×2 (07:34→19:30)
[2018-08-04] MEDS: CELEXA PO SCH (07:59)
[2018-08-04] MEDS: CULTURELLE PO SCH ×2 (07:59→20:08)
[2018-08-04] MEDS: SOLU-MEDROL IV SCH (07:59)
[2018-08-04] MEDS: LASIX IV SCH (07:59)
[2018-08-04] MEDS: NORCO-10 PO PRN ×2 (10:53→20:08)
[2018-08-04] MEDS: XANAX PO PRN ×2 (10:53→20:08)
--- NOTE | 2018-08-04 13:56 | PROGRESS NOTE ---
DATE: 08/04/2018 SUBJECTIVE: Ms. Marshall is feeling very well. She feels like her breathing is much better, but she would like to stay another day, another 24 hours of diuresis. She think she can try and go home tomorrow. She does have oxygen I think at home already. OBJECTIVE: Vital Signs: On exam today, temperature 98.1 degrees, pulse 82, respirations 18, blood pressure 138/75. Eyes: Pupils are equal and round. Lungs: Clear in all lung patterson. Cardiovascular exam: Regular rhythm and rate without murmur or S3. Abdomen: Soft. Skin: Warm and dry. : Urine output 3400 mL. Blood sugars 241, 113 and 133. ASSESSMENT AND PLAN: 1. A 73 year old with chronic obstructive pulmonary disease community-acquired pneumonia, chronic hypoxemic respiratory failure. She continues to have some mild wheezing, which has continued to improve. She is better today and less dyspnea. So, continue to ambulate, continue present treatment, taper her steroids as we can, and see if maybe she may be ready to go home tomorrow. 2. Congestive heart failure. Following electrolytes, creatinine and BUN. We will check some more electrolytes tomorrow. Yesterday, creatinine was 0.6, sodium 142, potassium 4.0, chloride 97, BUN 26. cc: Jose Woody MD
[2018-08-04] MEDS: ZITHROMAX 500 MG/NS 500 MG/250 ML IVPB IV SCH (23:30)
[2018-08-05] MEDS: MAXIPIME 2 GM in NS 100 ML IV SCH ×2 (03:00→13:36)
[2018-08-05 06:45] LABS: BASO# 0.02 X1000 (0.0-0.2); BASO% 0.2 % (0.0-0.8); EOS# 0.32 X1000 (0.0-0.7); EOS% 3.9 % (0.0-10.0); HEMATOCRIT 34.3 % (37.0-47.0); HEMOGLOBIN 9.8 g/dL (12.0-16.0); IMM GRAN# 0.03 X1000 (0.0-0.04); IMM GRAN% 0.4 % (0.0-0.5); LYMPH# 1.94 X1000 (1.2-3.4); LYMPH% 23.9 % (20.5-51.1); MCH 23.6 PG (27-31); MCHC 28.6 g/dL (33-37); MCV 82.5 FL (81-99); MONO% 11.1 % (1.7-9.3); MPV 9.5 FL (7.4-10.4); NEUT# 4.91 X1000 (1.4-6.5); NEUT% 60.5 % (42.2-75.2); PLT 263 X1000 (130-400); RBC 4.16 XMIL (4.2-5.4); RDW 17.7 % (11.5-14.5); WBC 8.12 X1000 (4.8-10.8)
[2018-08-05] MEDS: LOVENOX SUBQ SCH (06:50)
[2018-08-05] MEDS: PROTONIX IV SCH (06:50)
[2018-08-05] MEDS: SODIUM CHLORIDE 0.9% INJ SCH (06:50)
[2018-08-05 07:12] LABS: AGAP 8; BUN 19 mg/dL (8-22); CHLORIDE 99 mmol/L (98-107); COSMO 284; CREATININE 0.6 mg/dL (0.5-0.9); ESTIMATED GFR > 60; GLUCOSE 99 mg/dL (70-104); MAGNESIUM 1.9 mg/dL (1.5-2.7); POTASSIUM 3.6 mmol/L (3.5-5.1); SODIUM 141 mmol/L (136-145); TCO2 34 mmol/L (25-35)
[2018-08-05] MEDS: MUCOMYST 20% INH SCH (07:38)
[2018-08-05] MEDS: ADVAIR 500/50 DISKUS INH SCH (07:38)
[2018-08-05] MEDS: DUONEB (A & A) INH SCH ×3 (07:38→15:22)
[2018-08-05] MEDS: HUMALOG SUBQ SCH ×2 (07:42→13:00)
[2018-08-05] MEDS: CULTURELLE PO SCH (08:16)
[2018-08-05] MEDS: CELEXA PO SCH (08:16)
[2018-08-05] MEDS: LASIX IV SCH (08:17)
[2018-08-05] MEDS: SOLU-MEDROL IV SCH (08:17)
[2018-08-05] MEDS: XANAX PO PRN (08:34)
[2018-08-05] MEDS: NORCO-10 PO PRN (08:35)
[2018-08-05 13:33] VITALS: BP 120/69
--- NOTE | 2018-08-05 14:43 | DISCHARGE SUMMARY ---
ADMISSION DATE: 07/29/2018 DISCHARGE DATE: 08/05/2018 HISTORY OF PRESENT ILLNESS: This is a 73-year-old female with history of hypertension, COPD, reported history of congestive heart failure, who presented with shortness of breath for the last week and a somewhat productive cough, but un clear if there was any bronchitis. She had a fairly high CO2 requirement. She was on 5 L, and they had to put her on 100% non- rebreather, and then eventually put her on a Ventimask. She recently was admitted here to this facility on 06/13/2018 and discharged on 06/19/2018. During that admission she was treated for COPD exacerbation, acute on chronic hypoxemia hypercapnia respiratory failure. The patient said approximately a week ago she began to have worsening shortness of breath with rest and on exertion. PAST MEDICAL HISTORY: 1. COPD, on home oxygen 5 L per nasal cannula. 2. Reported history of diastolic dysfunction with last known ejection fraction 65%. That was in March 2017. 3. Hypertension. 4. Depression. 5. Anxiety. 6. Gastroesophageal reflux disease. 7. Gout. 8. Obstructive sleep apnea, on BiPAP. 9. Diabetes mellitus. PAST SURGICAL HISTORY: 1. Cholecystectomy. 2. Hysterectomy. 3. Appendectomy. 4. Right carpal tunnel surgery. HOSPITAL COURSE: X-ray showed low lung volumes, mild bibasilar subsegmental atelectasis, though no definite no definite pathology. CT angiogram showed severe emphysema. There were bibasilar infiltrates suggesting pneumonia that was worse on the right. No evidence of pulmonary embolism. The full CT report, there was mention of a stable 9 mm lung nodule, right lower lobe, as well as a stable 7 mm lung nodule in the right lung apex, which were nonspecific so was admitted for acute hypoxemic respiratory failure that was multifactorial. Patient had COPD, and she already was oxygen dependent 5 L at home and then felt there is some pulmonary venous hypertension as result of her congestive heart failure and possible multilobar pneumonia and exacerbation of COPD. She had a repeat echocardiogram and that was on 07/30/2018. Preserved left ventricular function. Enlargement of right ventricle suggestive of pressure volume overload and pulmonary pressure is estimated at 57 mmHg. No significant valvular dysfunction. Dr. Avila was consulted. He felt she had COPD with chronic hypoxemic respiratory failure and obesity with COPD exacerbation and acute community-acquired pneumonia. Infiltrates were bibasilar and could be consistent with reflux, but she denies any really reflux symptoms. She steadily improved with antibiotics and bronchodilators and felt she was ready go home. We will put her on a steroid taper when she goes home. DISCHARGE MEDICATIONS: We will have her on: 1. DuoNeb inhalers. 2. Xanax 0.5 mg. I think she took p.r.n. anxiety. 3. Celexa 40 mg a day. 4. Advair 500/50 one puff b.i.d. 5. Lasix 40 mg p.o. daily. 6. Culturelle 1 b.i.d. 7. I put her on a Medrol dose pack. Continue her: 1. Allopurinol 300 mg a day. 2. BuSpar 10 mg q.8h. 3. She can go back to Prinivil 10 mg a day. 4. Glucophage 500 mg b.i.d. 5. Omeprazole 40 mg a day. 6. Spiriva 1 puff daily. cc: Jose Woody MD MTDD
--- NOTE | 2018-08-06 10:32 | Extremity Venous Study ---
PROCEDURE NAME: Venous U/S Right Leg - 07/29/2018 REFERRING PHYSICIAN: Dr. Woody in the emergency department. PATIENT PROFILE: A 73-year-old female. MICROBIOLOGY SUPERVISOR: Catia Sullivan RVT. INDICATION: Swelling of the right lower extremity. She also has shortness of breath. Rule out deep venous thrombosis. SUMMARY: The right common femoral vein and its branches, deep and superficial femoral veins were satisfactorily imaged. They had flow through them and were compressible. Right popliteal vein and the deep veins below the right knee were all compressible and had flow through them. The superficial veins of the right lower extremity were compressible throughout their length. There was evidence of fluid posteriorly in the popliteal space consistent with a Huff cyst. FINDINGS: No evidence of acute deep or superficial venous thrombosis, right lower extremity. cc: Renee Mayes MD
== END 2018-08-05 16:23 | disposition home health service (06) | DRG 291 ==
LOC: SUPCPDRO → ED 15:01 → EDIPHOLD 22:06 → SUATTDRO 22:06 → 3N 07-30 16:26
PROVIDERS: ATTEND Emergency Medicine
CPT/HCPCS: 51702; 71010; 71045; 71275; 80048; 80053; 81001; 82550; 82805; 82948; 83036; 83605; 83735; 83880; 84100; 84484; 85025; 85379; 85610; 85730; 87040; 93005; 93306; 93971; 94640; 94761; 94762; 96365; 96366; 96367; 96372; 96375; 96376; 97110; 97162; 97165; 97530; 97535; 99285; A9270; C9113; J0456; J0692; J1650; J1815; J1940; J2920; J2930; Q9967; S0164; XXXXX